=== PATIENT | male | born 1995 | race Two or more races ===

== ENCOUNTER 2018-08-09 12:14 | Emergency (ER) | payer OTHER ==
--- NOTE | 2018-08-09 12:53 | Emergency Department Record ---
History of Present Illness - General Chief complaint: Burn/Smoke Inhalation Stated complaint: CHEMICAL BAR Time Seen by Provider: 08/09/18 12:33 Source: Patient Mode of Arrival: Ambulatory Limitations: No limitations - History of Present Illness Initial comments: The patient is here due to a chemical exposure to the L palm. He works in the [employer] and accidentally got Rapacide on the L palm. It is a strong cleaning agent. The patient did clean the area well and it was slightly white on the skin initially. Recently the whiteness has resolved and the skin is back to normal. He denies any hand pain or discomfort. MD Complaint: Chemical exposure Onset/Timin -: Hour(s) Type of Exposure: Chemical Smoke Inhalation: None Severity: Mild Severity scale (1-10): 3 Associated Symptoms: Denies other symptoms - Related Data Home Medications Medication Instructions Recorded Confirmed Last Taken Infliximab [Remicade] 100 mg IV ASDIR 08/09/18 08/09/18 Unknown Allergies Allergy/AdvReac Type Severity Reaction Status Date / Time No Known Drug Allergies Allergy Verified 08/09/18 12:34 Travel Screening - Travel/Exposure Within Last 30 Days Have you traveled within the last 30 days?: No - Travel/Exposure Within Last Year Have you traveled outside the [place] in the last year?: No - Additonal Travel Details Have you been exposed to anyone with a communicable illness?: No Review of Systems Constitutional: Denies: Chills, Fever Past Medical History - SOCIAL HISTORY Smoking Status: Never smoker Alcohol Use: None Drug Use: None - RESPIRATORY Hx Respiratory Disorders: No - CARDIOVASCULAR Hx Cardio Disorders: No - NEURO Hx Neuro Disorders: No - GI Hx GI Disorders: Yes Hx Crohn's Disease: Yes - Hx Genitourinary Disorders: No - ENDOCRINE Hx Endocrine Disorders: No - MUSCULOSKELETAL Hx Musculoskeletal Disorders: No - PSYCH Hx Psych Problems: No - HEMATOLOGY/ONCOLOGY Hx Hematology/Oncology Disorders: No Family Medical History Any Significant Family History?: No Physical Exam - General General Appearance: Alert, Cooperative, No acute distress - Head Head exam: Atraumatic, Normocephalic - Eye Eye exam: Normal appearance - Extremities Extremities exam: Normal inspection (There is no signs of skin irritation, blistering or swelling.), Full ROM. negative: Joint swelling, Tenderness Course Vital Signs 08/09/18 12:34 Temperature 98.8 F Pulse Rate 87 Respiratory 18 Rate Blood Pressure 137/73 Pulse Ox 98 Disposition Disposition: Discharge Clinical Impression: Burn Injury Disposition: Home, Self-Care Condition: (2) Stable Instructions: Chemical Skin Burn (ED) Additional Instructions: Please watch for any skin changes and return to the ER for any problems. Forms: Patient Portal Access Time of Disposition: 12:53 Quality - Quality Measures Quality Measures: N/A - Blood Pressure Screening View Details: Yes Does Patient Have Any of the Following: No Blood Pressure Classification: Pre-Hypertensive BP Reading Systolic Measurement: 137 Diastolic Measurement: 73 Screening for High Blood Pressure: < Pre-Hypertensive BP, F/U Documented > [ [id number]] Pre-Hypertensive Follow-up Interventions: Referral to alternative/primary care provider.
[2018-08-09 16:42] LABS: AMPHETAMINE SCREEN URINE NOT DETECTED; BARBITURATE SCREEN URINE NOT DETECTED; BENZODIAZEPINE SCREEN URINE NOT DETECTED; COCAINE SCREEN URINE NOT DETECTED; METHADONE SCREEN URINE NOT DETECTED; METHAMPHETAMINE SCREEN NOT DETECTED; OPIATE SCREEN URINE NOT DETECTED; OXYCODONE SCREEN URINE NOT DETECTED; PHENCYCLIDINE SCREEN URINE NOT DETECTED; PROPOXYPHENE SCREEN URINE NOT DETECTED; THC SCREEN URINE NOT DETECTED; TRICYCLIC ANTIDEPRESSANT SCRN NOT DETECTED
== END 2018-08-09 13:01 | disposition home or self-care (01) ==
LOC: ER 12:14
DX: T65.891A Toxic effect of other specified substances, accidental (unintentional), initial encounter (principal); T23.552A Corrosion of first degree of left palm, initial encounter; Y93.H3 Activity, building and construction; Y92.239 Unspecified place in hospital as the place of occurrence of the external cause; Y99.0 Civilian activity done for income or pay
CPT/HCPCS: 80305; 99282